=== PATIENT | female | born 1985 | race Asian ===

== ENCOUNTER 2017-12-13 21:55 | Inpatient (IN) | END 2017-12-18 13:20 | disposition home or self-care (01) | DRG 777 ==

== ENCOUNTER 2018-06-12 12:51 | Emergency (ER) | payer OTHER ==
[~2018-06-12] VITALS: Wt 50.6 kg
[2018-06-12] MEDS ORDERED: predniSONE 20 MG TAB ONE (16:53)
[2018-06-12] MEDS ORDERED: PRED20TA PO (16:54)
[2018-06-12] MEDS ORDERED: AZIT250T PO (16:54)
[2018-06-12] MEDS ORDERED: BEN25 PO (16:54)
[2018-06-12] MEDS ORDERED: predniSONE 50 MG TAB PO ONE (17:00)
[2018-06-12] MEDS ORDERED: DIPHENHYDRAMINE 25 MG CAP PO ONE (17:00)
[2018-06-12] MEDS ORDERED: FAMOTIDINE 20 MG TAB PO ONE (17:00)
--- NOTE | 2018-06-12 17:06 | ERD ---
ER Documentation Chief Complaint Chief Complaint RASH ALL OVER X2 DAYS, ITCHING, NO SOB HPI 33-year-old female patient with no significant past medical history presents the ED complaining of a rash started 2 days ago. Patient reports that she was on day 3 of her amoxicillin, taking it for throat infection, started to get a rash. Denies any new foods, detergents, any new creams or detergents. Denies having any fever, chills, abdominal pain, chest pain, shortness of breath, lip or tongue swelling. ROS All systems reviewed and are negative except as per history of present illness. Medications Home Meds Active Scripts Azithromycin* (Zithromax*) 250 Mg Tablet, 250 MG PO .ZPACK DIRECTED, #6 TAB TAKE 500 MG (2 TABS) THE FIRST DAY THEN 250 MG (1 TAB) DAYS 2-5 Prov:ZULEIMA LUCAS PA-C 06/12/18 Prednisone* (Prednisone*) 20 Mg Tab, 40 MG PO DAILY for 4 Days, TAB Prov:ZULEIMA LUCAS PA-C 06/12/18 Diphenhydramine Hcl* (Benadryl*) 25 Mg Cap, 25 MG PO Q6, #30 CAP Prov:ZULEIMA LUCAS PA-C 06/12/18 Allergies Allergies: Coded Allergies: amoxicillin (Verified Allergy, Mild, rash, 06/12/18) PMhx/Soc History of Surgery: Yes (C-SECTIONX1, LEFT SALPINGOOFORECTOMY.) Anesthesia Reaction: No Hx Neurological Disorder: No Hx Respiratory Disorders: No Hx Cardiac Disorders: No Hx Psychiatric Problems: No Hx Miscellaneous Medical Probl: No Hx Alcohol Use: No Hx Substance Use: No Hx Tobacco Use: No FmHx Family History: No diabetes, No coronary disease Physical Exam Vitals Vital Signs Date Temp Pulse Resp B/P (MAP) Pulse Ox O2 O2 Flow FiO2 Time Delivery Rate 06/12/18 98.9 79 16 154/88 99 13:03 (110) Physical Exam Const: [id number]-[id number], well-nourished. In no acute distress. Head: Atraumatic, normocephalic Eyes: Normal Conjunctiva without injection ENT: Normal external ear, nose and mouth. No angioedema. Neck: Full range of motion. No meningismus. Resp: Clear to auscultation bilaterally. No wheezing, rhonchi, rales, or crackles. No accessory muscle use. No retractions. Cardio: Regular rate and rhythm, no murmurs Skin: No petechiae or purpura. Erythematous 1-2 cm blanching wheals noted on right upper extremity, torso. Back: No midline tenderness. No CVA tenderness. Ext: No cyanosis, or edema. Cap refill less than 2 seconds. Distal pulses intact bilaterally. Neur: Awake and alert. Normal gait and coordination. Muscle strength 5/5. Sensation intact bilaterally. Psych: Normal Mood and Affect Results 24 hrs Current Medications Medications Dose Sig/Nicolle Start Time Status Last (Trade) Ordered Route PRN Stop Time Admin Dose Reason Admin Prednisone 50 mg ONCE ONCE 06/12/18 06/12/18 (Prednisone) PO 17:00 06/12/18 16:55 17:01 Famotidine 20 mg ONCE ONCE 06/12/18 06/12/18 (Pepcid) PO 17:00 06/12/18 16:55 17:01 25 mg ONCE ONCE 06/12/18 06/12/18 Diphenhydrami PO 17:00 06/12/18 16:54 ne HCl 17:01 (Benadryl) Prednisone 20 mg STK-MED 06/12/18 DC (Prednisone) ONCE .ROUTE 16:53 06/12/18 16:54 Procedures/MDM 33-year-old female presents to the ED complaining of a rash that she developed, 2 days ago after taking amoxicillin. Patient is afebrile and nontoxic- appearing. Patient was taking amoxicillin for her throat infection, she seems to have an allergic reaction to the antibiotic, developed hives, therefore patient's antibiotic will be changed to Zithromax. Low suspicion for anaphylaxis, scabies, SJS/TEN, TSS, Lyme's Disease, syphilis, RMSF, shingles, disseminated gonorrhea chlamydia, DIC, TTP, ITP, erythema multiforme, sepsis, cellulitis, necrotizing fasciitis, gangrene, meningococcemia, allergic contact dermatitis, urticaria, eczema, tinea infection, or other emergent conditions. Diagnosis: Rash and other nonspecific skin eruption Discharge medications: Benadryl, prednisone, Zithromax Follow up with primary care physician in 1-2 days for allergy testing. Instructed patient to return to the ED sooner for any worsening symptoms. Patient's questions were answered. Patient is hemodynamically stable. Patient understood and agreed with discharge plan. Patient discharged stable. Disclaimer: Inadvertent spelling and grammatical errors are likely due to [employer]/dictation software use and do not reflect on the overall quality of patient care. Also, please note that the electronic time recorded on this note does not necessarily reflect the actual time of the patient encounter. Departure Diagnosis: Primary Impression: Rash and other nonspecific skin eruption Condition: Stable Patient Instructions: Allergic Reaction, Other (General), Hives Referrals: [facility] YOU HAVE RECEIVED A MEDICAL SCREENING EXAM AND THE RESULTS INDICATE THAT YOU DO NOT HAVE A CONDITION THAT REQUIRES URGENT TREATMENT IN THE EMERGENCY DEPARTMENT. FURTHER EVALUATION AND TREATMENT OF YOUR CONDITION CAN WAIT UNTIL YOU ARE SEEN IN YOUR DOCTORS OFFICE WITHIN THE NEXT 1-2 DAYS. IT IS YOUR RESPONSIBILITY TO MAKE AN APPOINTMENT FOR FOLOW-UP CARE. IF YOU HAVE A PRIMARY DOCTOR --you should call your primary doctor and schedule an appointment IF YOU DO NOT HAVE A PRIMARY DOCTOR YOU CAN CALL OUR PHYSICIAN REFERRAL HOTLINE AT IF YOU CAN NOT AFFORD TO SEE A PHYSICIAN YOU CAN CHOSE FROM THE FOLLOWING [facility] [address] [facility]. [facility] [address] [facility]. [facility] [address] [facility] [facility] [address] [facility]. [facility] [address] [facility]. [facility]. [address] [facility]. [facility] YOU HAVE RECEIVED A MEDICAL SCREENING EXAM AND THE RESULTS INDICATE THAT YOU DO NOT HAVE A CONDITION THAT REQUIRES URGENT TREATMENT IN THE EMERGENCY DEPARTMENT. FURTHER EVALUATION AND TREATMENT OF YOUR CONDITION CAN WAIT UNTIL YOU ARE SEEN IN YOUR DOCTORS OFFICE WITHIN THE NEXT 1-2 DAYS. IT IS YOUR RESPONSIBILITY TO MAKE AN APPOINTMENT FOR FOLOW-UP CARE. IF YOU HAVE A PRIMARY DOCTOR --you should call your primary doctor and schedule and appointment IF YOU DO NOT HAVE A PRIMARY DOCTOR YOU CAN CALL OUR PHYSICIAN REFERRAL HOTLINE AT . IF YOU CAN NOT AFFORD TO SEE A PHYSICIAN YOU CAN CHOSE FROM THE FOLLOWING [facility] INSTITUTIONS: [facility] [address] [place] [address] [facility] [address] [place] [address] [facility] [address] [place] [address] [facility] URGENT C[facility]SPECIALTIES Additional Instructions: Call your primary care doctor TOMORROW for an appointment during the next 2-3 days for allergy testing.See the doctor sooner or return here if your condition worsens before your appointment time. ZULEIMA LUCAS PA-C Jun 12, 2018 17:06
[2018-06-12 17:11] VITALS: BP 138/79; PULSE 63; RESP 16
== END 2018-06-12 17:12 | disposition home or self-care (01) ==
LOC: FTE 12:51
DX: R21 Rash and other nonspecific skin eruption (principal)
CPT/HCPCS: 81025; 99283; J7512